=== PATIENT | female | born 1990 | race Caucasian/White ===

== ENCOUNTER 2023-06-19 10:29 | Emergency (ER) | payer OTHER ==
[~2023-06-19] VITALS: Ht 162.6 cm; Wt 78.4 kg
[2023-06-19] MEDS ORDERED: PENICILLIN V P500 MG PO (13:42)
[2023-06-19 13:53] VITALS: BP 134/74
== END 2023-06-19 13:54 | disposition home or self-care (01) ==
LOC: ED 10:29
DX: K04.7 Periapical abscess without sinus (principal); F41.9 Anxiety disorder, unspecified; F32.A Depression, unspecified
CPT/HCPCS: 99283